=== PATIENT | female | born 1975 | race Caucasian/White ===

== ENCOUNTER → 2020-07-10 11:36 | Outpatient (BNVA) | payer MEDICAID, SELFPAY | PROVIDERS: Visit Provider Family Medicine | DX: Z13.1 Encounter for screening for diabetes mellitus (principal); E03.9 Hypothyroidism, unspecified; Z13.6 Encounter for screening for cardiovascular disorders; S61.412A Laceration without foreign body of left hand, initial encounter; S61.412D Laceration without foreign body of left hand, subsequent encounter; Z48.02 Encounter for removal of sutures | CPT/HCPCS: 80048; 80061; 84439; 84443; 84481 ==

== ENCOUNTER → 2020-08-27 11:17 | Outpatient (BNVA) | payer BC, MEDICAID, SELFPAY | PROVIDERS: Visit Provider Registered Nurse | DX: E03.9 Hypothyroidism, unspecified (principal); N91.2 Amenorrhea, unspecified | CPT/HCPCS: 83001; 84146; 84443; 84702 ==

== ENCOUNTER → 2020-11-10 09:23 | Outpatient (BNVA) | payer BC, MEDICAID, SELFPAY | PROVIDERS: Visit Provider Registered Nurse | DX: E03.9 Hypothyroidism, unspecified (principal); N91.2 Amenorrhea, unspecified; N92.4 Excessive bleeding in the premenopausal period; Z20.2 Contact with and (suspected) exposure to infections with a predominantly sexual mode of transmission; E07.9 Disorder of thyroid, unspecified | CPT/HCPCS: 80053; 81000; 84443; 85025; 85651; 86431; 87491; 87591; 87661 ==

== ENCOUNTER → 2020-11-17 11:10 | Outpatient (BNVA) | payer BC, MEDICAID, SELFPAY | PROVIDERS: Visit Provider Registered Nurse | DX: Z01.419 Encounter for gynecological examination (general) (routine) without abnormal findings (principal); K29.00 Acute gastritis without bleeding; F17.210 Nicotine dependence, cigarettes, uncomplicated | CPT/HCPCS: 87070; 87205; 88175 ==

== ENCOUNTER 2020-12-09 08:28 | Outpatient (CLI) | payer BC, MEDICAID, SELFPAY ==
--- NOTE | 2020-12-09 08:37 | XRR_ITS ---
PROCEDURE INFORMATION: Exam: XR Lumbosacral Spine Exam date and time: 12/09/2020 8:40 AM Age: 45 years old Clinical indication: Pain; Lumbago with sciatica; Additional info: M54.40 - lumbago with sciatica, unspecified side TECHNIQUE: Imaging protocol: XR of the lumbosacral spine. Views: 2 or 3 views. COMPARISON: No relevant prior studies available. FINDINGS: Bones/joints: No fracture or other acute bone or joint abnormalities are seen in the lumbar spine. Moderate chronic degenerative changes are present with osteophytes on the vertebral bodies and mild disc space narrowing. There is sclerosis and narrowing of the lower lumbar facet joints. There is no malalignment. Soft tissues: Unremarkable. XR/XR lumbar spine 2-3V* [id number] IMPRESSION: Chronic degenerative disease. No acute abnormality.
--- NOTE | 2020-12-09 08:37 | XRR_ITS ---
PROCEDURE INFORMATION: Exam: XR Cervical Spine Exam date and time: 12/09/2020 8:40 AM Age: 45 years old Clinical indication: Pain; Other: Low back; Additional info: S13.4xxa - sprain of ligaments of cervical spine, initial. . . TECHNIQUE: Imaging protocol: XR of the cervical spine. Views: 2 or 3 views. COMPARISON: No relevant prior studies available. FINDINGS: Bones/joints: No fracture or other acute abnormalities are seen in the cervical spine. [id number] chronic degenerative changes are present with small osteophyte formation, tiny ligamentous calcification and mild disc space narrowing. There is no malalignment. Soft tissues: Unremarkable. XR/XR cervical spine 3V* [id number] IMPRESSION: [id number] DJD. No acute abnormality.
--- NOTE | 2020-12-09 08:45 | US_ITS ---
WS: [id number] ULTRASOUND THYROID TECHNIQUE: Ultrasound of the thyroid. CLINICAL INFORMATION: E04.9 - Nontoxic goiter, unspecified COMPARISON: None. FINDINGS: Thyroid: Heterogeneous enlarged thyroid with coarse echotexture consistent with goiter. No dominant t hyroid nodules are present. Right thyroid lobe: 4.6 cm x 1.9 cm x 1.6 cm Left thyroid lobe: 4.5 cm x 1.2 cm x 1.1 cm. Isthmus: 0.3 mm. Cervical lymphadenopathy: None. US/US thyroid [id number] IMPRESSION: 1. Heterogeneous enlarged thyroid with coarse echotexture consistent with goit er. 2. No dominant thyroid nodules.
--- NOTE | 2020-12-09 09:35 | MM_ITS ---
WS: [id number] BILATERAL SCREENING DIGITAL MAMMOGRAM WITH CAD HISTORY: SCREENING COMPARISON: 11/22/2017 Bilateral CC and MLO views submitted. Computer aided detection analyzed. Breast composition: The breasts are heterogeneously dense, which may obscure small masses. No suspici ous masses, microcalcifications or architectural distortion. MM/[place] [id number] IMPRESSION: BI-RADS: 1-Negative FOLLOW UP: 1 Year Follow-up
== END 2020-12-09 08:29 | disposition home or self-care (01) ==
PROVIDERS: PCP Registered Nurse; Visit Provider Registered Nurse
DX: Z12.31 Encounter for screening mammogram for malignant neoplasm of breast (principal); E04.9 Nontoxic goiter, unspecified; M54.40 Lumbago with sciatica, unspecified side; S13.4XXA Sprain of ligaments of cervical spine, initial encounter; M47.812 Spondylosis without myelopathy or radiculopathy, cervical region
CPT/HCPCS: 72040; 72100; 76536; 77067

== ENCOUNTER → 2021-10-09 13:55 | Outpatient (BNVA) | payer BC, MEDICAID, SELFPAY | PROVIDERS: PCP Family Medicine Adult Medicine; Visit Provider Family Medicine Adult Medicine | DX: E03.9 Hypothyroidism, unspecified (principal); Z78.9 Other specified health status; Z01.419 Encounter for gynecological examination (general) (routine) without abnormal findings | CPT/HCPCS: 80053; 80061; 83036; 84443; 85025 ==

== ENCOUNTER 2022-09-21 08:15 | Outpatient (CLI) | payer BC, MEDICAID, SELFPAY ==
--- NOTE | 2022-09-21 08:23 | MM_ITS ---
WS: [id number] Bilateral screening 3D tomosynthesis digital mammogram, 09/21/2022 Clinical Data: SCREENING Comparison: 12/09/2020, 11/22/2017, 02/11/2017, 01/16/2016, 01/09/2015. Findings: The breast parenchymal pattern shows heterogeneous density. No spiculated masses or clustered calcifi cations are seen. There are no secondary signs of carcinoma. There are lymph nodes in the left axilla . MM/[place] [id number] Impression: 1. Negative bilateral mammogram unchanged. 2. Recommend annual screening mammograms. BIRADS: 1-Negative FOLLOW UP: 1 Year Follow-up The CAD machine design checker was used.
== END 2022-09-21 08:16 | disposition home or self-care (01) ==
LOC: RAD 08:15
PROVIDERS: PCP Family Medicine Adult Medicine; Visit Provider Family Medicine Adult Medicine
DX: Z12.31 Encounter for screening mammogram for malignant neoplasm of breast (principal)
CPT/HCPCS: 77063; 77067

== ENCOUNTER 2022-09-22 06:24 | Outpatient (CLI) | payer BC, MEDICAID, SELFPAY ==
--- NOTE | 2022-09-22 06:30 | US_ITS ---
WS: [id number] Complete ABDOMINAL ULTRASOUND HISTORY: chronic abdominal pain COMPARISON: 11/22/2017 Liver: 22.8 cm in length. Liver is elongated which is probably due to a Jamila's lobe. Similar to the prior study. No mass or bile duct dilatation. Portal Vein: Normal hepatopetal flow with monophasic waveform. Gallbladder: Normally distended with no gallstones, wall thickening or pericholecystic fluid. Pancreas: Normal size and echogenicity. CBD: 0.4 cm. Right kidney: 12.7 cm x 4.7 cm x 5.9 cm. No mass, cortical thickening or hydronephrosis. Left kidney: 10.3 cm x 5.2 cm x 4.7 cm. No mass, cortical thickening or hydronephrosis. Spleen: Normal size and echogenicity. Abdominal aorta and IVC are within normal limits. No ascites. US/US abdomen complete* [id number] IMPRESSION: Normal complete abdomen ultrasound.
== END 2022-09-22 06:25 | disposition home or self-care (01) ==
LOC: RAD 06:25
PROVIDERS: PCP Family Medicine Adult Medicine; Visit Provider Family Medicine Adult Medicine
DX: R10.9 Unspecified abdominal pain (principal); R13.10 Dysphagia, unspecified; E03.9 Hypothyroidism, unspecified; E04.9 Nontoxic goiter, unspecified
CPT/HCPCS: 76700; 80053; 84443; 85025

== ENCOUNTER → 2023-02-25 10:39 | Outpatient (BNVA) | payer BC, MEDICAID, SELFPAY | PROVIDERS: PCP Family Medicine Adult Medicine; Visit Provider Surgery | DX: Z01.812 Encounter for preprocedural laboratory examination (principal); K58.9 Irritable bowel syndrome, unspecified; R10.9 Unspecified abdominal pain; R19.7 Diarrhea, unspecified | CPT/HCPCS: 36415; 80053; 82784; 83516; 83630; 83993; 85025; 86140; 87177; 87209; 87493; 87506 ==

== ENCOUNTER 2023-03-24 07:15 | Day surgery (SDC) | payer BC, MEDICAID, SELFPAY ==
[2023-03-22 10:23] VITALS: BMI 34.9
--- NOTE | 2023-03-24 06:26 | W.PM.OPSUD ---
Surgery/Procedure H&P Update DATE OF PROCEDURE: March 24, 2023 DATE H&P PERFORMED: 02/25/23 H&P UPDATE INFORMATION: I have reviewed H&P completed within last 30 days, I have examined patient prior to procedure, No changes to prior documentation and H[place] is in [facility] [place] date indicated PLANNED PROCEDURE: Operation Date: 03/24/23 08:20 [place] [id number] egd/colon R10.9, K58.9 , R13.10(Not Applicable) - Andrea Evangelista MD s Colonoscopy(Not Applicable) - Andrea Evangelista MD
[2023-03-24 07:32] VITALS: BP 161/100; PULSE 54; RESP 18; TEMP 36.4; O2SAT 98
[2023-03-24] MEDS: sodium chloride 0.9% 1,000 ML 30 ML IV (07:39)
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
[2023-03-24 08:55] VITALS: BP 130/95; PULSE 64; RESP 20; TEMP 36.3; O2SAT 100
[2023-03-24 09:01] VITALS: BP 134/93; PULSE 61; RESP 20; O2SAT 98
[2023-03-24 09:11] VITALS: BP 144/99; PULSE 66; RESP 20; O2SAT 99
[2023-03-24 09:24] VITALS: BP 151/93; PULSE 62; RESP 20; O2SAT 99
--- NOTE | 2023-03-24 09:35 | ANE.PACU2 ---
Inpatient post-anesthesia follow up: Airway intact: Yes Vital signs: Temperature 97.4 F Pulse Rate 62 Respiratory Rate 20 Blood Pressure 151/93 Pulse Oximetry 99 Oxygen Delivery Me thod Room Air Oxygen Flow Rate 2 Fraction of Inspir ed Oxygen Hydration adequate: Yes Nausea and vomiting: No Pain level: 1 Mental status: Baseline
== END 2023-03-24 09:37 | disposition home or self-care (01) ==
PROVIDERS: PCP Family Medicine Adult Medicine; Visit Provider Surgery
PROC: 0DJ08ZZ Inspection of Upper Intestinal Tract, Via Natural or Artificial Opening Endoscopic (ICD-10-PCS; CPT 43235; principal; 2023-03-24 08:20)
PROC: 0DJD8ZZ Inspection of Lower Intestinal Tract, Via Natural or Artificial Opening Endoscopic (ICD-10-PCS; CPT 45378; 2023-03-24 08:20)
DX: R10.9 Unspecified abdominal pain (principal); K58.9 Irritable bowel syndrome, unspecified; R13.10 Dysphagia, unspecified; K62.1 Rectal polyp; K63.5 Polyp of colon; K29.50 Unspecified chronic gastritis without bleeding; B96.81 Helicobacter pylori [H. pylori] as the cause of diseases classified elsewhere; I10 Essential (primary) hypertension; K21.9 Gastro-esophageal reflux disease without esophagitis; E03.9 Hypothyroidism, unspecified; F17.200 Nicotine dependence, unspecified, uncomplicated
CPT/HCPCS: 43239; 45380; 88305; 88342; J2250; J2704; J3490; J7030

== ENCOUNTER → 2023-04-11 08:32 | Outpatient (BNVA) | payer BC, MEDICAID, SELFPAY | PROVIDERS: PCP Family Medicine Adult Medicine; Visit Provider Surgery | DX: R10.9 Unspecified abdominal pain (principal) | CPT/HCPCS: 87338 ==

== ENCOUNTER 2023-10-06 11:36 | Outpatient (CLI) | payer BC, MEDICAID, SELFPAY ==
--- NOTE | 2023-10-06 12:00 | MM_ITS ---
WS: [id number] SCREENING DIGITAL TOMOSYNTHESIS MAMMOGRAM WITH CAD HISTORY: SCREENING COMPARISON: 09/21/2022 and 12/09/2020 Bilateral CC and MLO with tomosynthesis views submitted. Synthetic mammography reviewed. Computer aid ed detection analyzed. Breast composition: There are scattered areas of fibroglandular density. No suspicious masses, microc alcifications or architectural distortion. IMPRESSION: MM/[place] [id number] BI-RADS: 1-Negative FOLLOW UP: 1 Year Follow-up
== END 2023-10-06 11:37 | disposition home or self-care (01) ==
LOC: MOBLMAM 11:46
PROVIDERS: PCP Family Medicine Adult Medicine; Visit Provider Family Medicine Adult Medicine
DX: Z12.31 Encounter for screening mammogram for malignant neoplasm of breast (principal)
CPT/HCPCS: 77063; 77067

== ENCOUNTER → 2023-12-15 11:36 | Outpatient (BNVA) | payer BC, MEDICAID, SELFPAY | PROVIDERS: PCP Family Medicine Adult Medicine; Visit Provider Family Medicine Adult Medicine | DX: R63.5 Abnormal weight gain (principal); E03.9 Hypothyroidism, unspecified; M06.9 Rheumatoid arthritis, unspecified; R03.0 Elevated blood-pressure reading, without diagnosis of hypertension; N95.9 Unspecified menopausal and perimenopausal disorder; M25.561 Pain in right knee | CPT/HCPCS: 80053; 80061; 84443; 85025; 86140; 86431 ==